=== PATIENT | male | born 1960 | race Asian ===

== ENCOUNTER 2025-05-18 04:08 | Inpatient (IN) | payer OTHER ==
[~2025-05-18] VITALS: Ht 177.8 cm; Wt 80.2 kg
[2025-05-18 04:52] LABS: PLATELET COUNT (AUTO) 285 K/uL (150-450); RED BLOOD CELL COUNT(AUTO) 4.55 MIL/uL (4.50-5.90); RED CELL DISTRIBUTION WIDTH 12.8 % (11.5-14.5); WHITE BLOOD COUNT (AUTO) 14.6 K/uL (4.5-11.0)
[2025-05-18 05:04] LABS: CALCIUM, TOTAL 8.7 mg/dL (8.8-10.5); CREATININE 0.92 mg/dL (0.60-1.30); GLOMERULAR FILTR. RATE CALC > 60 mL/min (>60); GLUCOSE,RANDOM 113 mg/dL (70-110); SODIUM SERUM 137 mmol/L (136-145); UREA NITROGEN, BLOOD 13 mg/dL (7-18)
[2025-05-18 05:14] LABS: LACTIC ACID 1.0 mmol/L (0.4-2.0)
[2025-05-18 05:26] LABS: TROPONIN I-HIGH SENSITIVITY 6 ng/L (<76)
[2025-05-18] MEDS ORDERED: 0.9% SODIUM CHLORIDE 10 ML SYRINGE IVP PRN (06:30)
[2025-05-18] MEDS: SODIUM CHLORIDE 0.9% 2,150 ML IV ONE (07:13)
[2025-05-18] MEDS: VANCOMYCIN 1.5 GM/WATER(PEG) 300 ML IV ONE (07:14)
[2025-05-18 09:57] LABS: APPEARANCE,URINE CLEAR (CLEAR); GLUCOSE, URINE (UA) NEGATIVE (NEGATIVE); LEUKOCYTE ESTERASE ,URINE NEGATIVE (NEGATIVE); NITRATE,URINE NEGATIVE (NEGATIVE); OCCULT BLOOD,URINE SMALL (NEGATIVE); SPECIFIC GRAVITIY, URINE 1.031 (1.003-1.030)
[2025-05-18] MEDS ORDERED: MEPERIDINE-PF 25 MG/ML VIAL IVP PRN (10:45)
[2025-05-18] MEDS ORDERED: FentaNYL CITRATE PF 100 MCG/2 ML VIAL IVP PRN (10:45)
[2025-05-18] MEDS ORDERED: CHLORHEXIDINE GLUCONATE 4% 118 ML TOPICAL LIQUID TP ONE (12:27)
[2025-05-18] MEDS ORDERED: BUPIVACAINE HCL/PF 0.25% 30 ML VIAL ONE (12:28)
[2025-05-18] MEDS ORDERED: BUPIVACAINE 0.25%/EPI 1:200,000/PF 30 ML VIAL ONE (12:28)
[2025-05-18] MEDS: HYDROGEN PEROXIDE 3% 473 ML SOLUTION ONE (13:10)
[2025-05-18 15:04] VITALS: BP 123/69; PULSE 80; RESP 18; TEMP 99.1; O2SAT 98
[2025-05-18] MEDS: ACETAMINOPHEN 325 MG TABLET PO PRN (16:05)
[2025-05-18] MEDS ORDERED: MAGNESIUM HYDROXIDE SUSPENSION 30 ML UDCUP PO PRN (16:15)
[2025-05-18] MEDS ORDERED: ZOLPIDEM TARTRATE 5 MG TABLET PO PRN (16:15)
[2025-05-18] MEDS ORDERED: BISACODYL 10 MG RECTAL RECTAL SUPPOSITORY PR PRN (16:15)
[2025-05-18] MEDS ORDERED: ACETAMINOPHEN 325 MG TABLET PO PRN (16:15)
[2025-05-18] MEDS ORDERED: ONDANSETRON HCL 4 MG/2 ML VIAL IVP PRN (16:15)
[2025-05-18] MEDS ORDERED: HYDROCODONE/ACETAMINOPHEN 5-325 MG TABLET PO PRN (16:15)
[2025-05-18] MEDS ORDERED: MORPHINE SULFATE 2 MG/ML SYRINGE IVP PRN (16:15)
[2025-05-18 19:37] VITALS: BP 105/74; PULSE 73; RESP 18; TEMP 97.5; O2SAT 96
[2025-05-18] MEDS: VANCOMYCIN 1GM/WATER(PEG/NADA) 200 ML IV SCH (20:58)
[2025-05-18] MEDS: OXYGEN THERAPY IH SCH (20:59)
[2025-05-18] MEDS: DOCUSATE SODIUM 100 MG CAPSULE PO SCH (21:00)
[2025-05-18] MEDS ORDERED: SODIUM CHLORIDE 0.9% 1,000 ML ONE (21:04)
[2025-05-18] MEDS: HEPARIN SODIUM,PORCINE 5,000 UNITS/ML VIAL SQ SCH (23:48)
[2025-05-19 00:05] VITALS: BP 105/67; PULSE 76; RESP 18; TEMP 98.1; O2SAT 95
[2025-05-19 04:54] VITALS: BP 107/69; PULSE 79; RESP 16; TEMP 98.1; O2SAT 97
[2025-05-19 06:00] LABS: PLATELET COUNT (AUTO) 271 K/uL (150-450); RED BLOOD CELL COUNT(AUTO) 3.93 MIL/uL (4.50-5.90); RED CELL DISTRIBUTION WIDTH 12.9 % (11.5-14.5); WHITE BLOOD COUNT (AUTO) 9.9 K/uL (4.5-11.0)
[2025-05-19 06:10] LABS: CALCIUM, TOTAL 8.3 mg/dL (8.8-10.5); CREATININE 0.73 mg/dL (0.60-1.30); GLOMERULAR FILTR. RATE CALC > 60 mL/min (>60); GLUCOSE,RANDOM 95 mg/dL (70-110); SODIUM SERUM 138 mmol/L (136-145); UREA NITROGEN, BLOOD 10 mg/dL (7-18)
[2025-05-19 08:02] VITALS: BP 126/75; PULSE 78; RESP 18; TEMP 98.4; O2SAT 94
[2025-05-19] MEDS: PANTOPRAZOLE SODIUM 40 MG DR TABLET PO SCH (08:28)
[2025-05-19] MEDS ORDERED: SUGAMMADEX SODIUM 200 MG/2 ML VIAL IVP ONE (09:47)
[2025-05-19] MEDS ORDERED: DEXAMETHASONE SOD PHOS 4 MG/ML VIAL IVP ONE (09:47)
[2025-05-19] MEDS ORDERED: ACETAMINOPHEN/ISO-OSM 1000 MG/100 ML BOTTLE IV ONE (09:47)
[2025-05-19] MEDS ORDERED: PROPOFOL 1% 20 ML VIAL IVP ONE (09:47)
[2025-05-19] MEDS ORDERED: LIDOCAINE/PF 2% 5 ML SYRINGE IVP ONE (09:47)
[2025-05-19] MEDS ORDERED: ONDANSETRON HCL 4 MG/2 ML VIAL IVP ONE (09:47)
[2025-05-19] MEDS ORDERED: ROCURONIUM BROMIDE 10 MG/ML 5 ML VIAL IV ONE (09:47)
[2025-05-19] MEDS ORDERED: GADOTERATE MEGLUMINE 10 MMOL/20 ML VIAL IVP ONE (09:57)
[2025-05-19 16:22] VITALS: BP 112/75; PULSE 75; RESP 19; TEMP 98.1; O2SAT 97
[2025-05-19 20:11] VITALS: BP 129/78; PULSE 85; RESP 18; TEMP 98.1; O2SAT 98
[2025-05-19 23:08] VITALS: BP 134/79; PULSE 73; RESP 18; TEMP 97.9; O2SAT 97
[2025-05-20 03:25] VITALS: BP 120/71; PULSE 77; RESP 18; TEMP 97.7; O2SAT 98
[2025-05-20 06:17] LABS: PLATELET COUNT (AUTO) 296 K/uL (150-450); RED BLOOD CELL COUNT(AUTO) 3.86 MIL/uL (4.50-5.90); RED CELL DISTRIBUTION WIDTH 12.7 % (11.5-14.5); WHITE BLOOD COUNT (AUTO) 5.7 K/uL (4.5-11.0)
[2025-05-20 06:42] LABS: CALCIUM, TOTAL 8.4 mg/dL (8.8-10.5); CREATININE 0.69 mg/dL (0.60-1.30); GLOMERULAR FILTR. RATE CALC > 60 mL/min (>60); GLUCOSE,RANDOM 94 mg/dL (70-110); SODIUM SERUM 142 mmol/L (136-145); UREA NITROGEN, BLOOD 10 mg/dL (7-18)
[2025-05-20 08:40] VITALS: BP 123/72; PULSE 72; RESP 19; TEMP 97.7; O2SAT 97
[2025-05-20 11:21] VITALS: BP 124/75; PULSE 73; RESP 18; TEMP 98.1; O2SAT 97
[2025-05-20 17:27] VITALS: BP 128/73; PULSE 76; RESP 19; TEMP 97.9; O2SAT 98
[2025-05-20 19:41] VITALS: BP 136/84; PULSE 81; RESP 18; TEMP 97.7; O2SAT 97
[2025-05-20] MEDS: VANCOMYCIN 1.25 GM/WATER(PEG) 250 ML IV SCH (20:42)
[2025-05-20 23:47] VITALS: BP 128/81; PULSE 72; RESP 18; TEMP 97.7; O2SAT 99
[2025-05-21 03:59] VITALS: BP 123/82; PULSE 78; RESP 17; TEMP 97.5; O2SAT 99
[2025-05-21 07:11] LABS: PLATELET COUNT (AUTO) 336 K/uL (150-450); RED BLOOD CELL COUNT(AUTO) 3.88 MIL/uL (4.50-5.90); RED CELL DISTRIBUTION WIDTH 12.9 % (11.5-14.5); WHITE BLOOD COUNT (AUTO) 4.8 K/uL (4.5-11.0)
[2025-05-21 07:23] LABS: CALCIUM, TOTAL 8.3 mg/dL (8.8-10.5); CREATININE 0.63 mg/dL (0.60-1.30); GLOMERULAR FILTR. RATE CALC > 60 mL/min (>60); GLUCOSE,RANDOM 93 mg/dL (70-110); SODIUM SERUM 140 mmol/L (136-145); UREA NITROGEN, BLOOD 11 mg/dL (7-18)
[2025-05-21 07:30] VITALS: BP 108/79; PULSE 72; RESP 18; TEMP 98; O2SAT 98
[2025-05-21 11:02] VITALS: BP 116/75; PULSE 72; RESP 18; TEMP 97.8; O2SAT 98
[2025-05-21 15:40] VITALS: BP 136/85; PULSE 77; RESP 20; TEMP 98.1; O2SAT 98
[2025-05-21] MEDS: PIPERACILLIN/TAZO 3.375 GM/D5W 50 ML IV SCH (17:20)
[2025-05-21 19:44] VITALS: BP 118/83; PULSE 78; RESP 20; TEMP 97.7; O2SAT 98
[2025-05-22 04:27] VITALS: BP 133/96; PULSE 76; RESP 18; TEMP 97.9; O2SAT 100
[2025-05-22 08:49] VITALS: BP 117/96; PULSE 75; RESP 20; TEMP 97.5; O2SAT 98
[2025-05-22] MEDS ORDERED: CEPH-558 PO (10:11)
[2025-05-22 15:21] VITALS: BP 127/78; PULSE 72; RESP 19; TEMP 97.5; O2SAT 99
== END 2025-05-22 16:30 | disposition home health service (06) | DRG 720 ==
LOC: EMS 04:48 → EDH 09:43 → 5N 15:00 → 6S 05-21 11:40
PROVIDERS: ADMIT Internal Medicine; ATTEND Internal Medicine
PROC: 0JBF0ZZ Excision of Left Upper Arm Subcutaneous Tissue and Fascia, Open Approach (ICD-10-PCS; principal; 2025-05-18 12:45)
DX: A41.9 Sepsis, unspecified organism (principal); J45.909 Unspecified asthma, uncomplicated; L02.414 Cutaneous abscess of left upper limb; L03.114 Cellulitis of left upper limb; M70.22 Olecranon bursitis, left elbow
CPT/HCPCS: 71045; 73223; 80048; 80202; 81001; 83605; 83880; 84145; 84484; 85025; 85379; 85651; 87040; 87070; 87186; 87205; 93005; 96365; 97166; 99285; J0131; J1100; J1644; J2405; J2543; J2704; J3490; J7030; 36415-L1; 36415-TC